=== PATIENT | female | born 1970 | race Two or more races ===

== ENCOUNTER 2019-04-07 09:20 | Outpatient (CLI) | payer OTHER ==
[~2019-04-07] VITALS: Ht 152.4 cm; Wt 99.8 kg
== END 2019-04-07 09:40 | disposition home or self-care (01) ==
LOC: OFIC 805 09:20
DX: M26.69 Other specified disorders of temporomandibular joint (principal)

== ENCOUNTER 2020-08-05 05:45 | Day surgery (SDC) | payer OTHER ==
[~2020-08-05 05:45] MED LIST: FORTAMET500 MG PO
[2020-08-05] MEDS ORDERED: KEFLEX500 MG PO (12:16)
== END 2020-08-05 13:00 | disposition home or self-care (01) ==
LOC: CIR.AMB 05:45
PROVIDERS: ATTEND Surgery
DX: D17.23 Benign lipomatous neoplasm of skin and subcutaneous tissue of right leg (principal); Z20.828 Contact with and (suspected) exposure to other viral communicable diseases